=== PATIENT | male | born 1995 | race Two or more races ===

== ENCOUNTER 2017-05-14 23:17 | Emergency (ER) | payer SELFPAY ==
[2017-05-14] MEDS ORDERED: TETANUS AND DIPHTHERIA TOXOID 0.5 ML DISP.SYRIN IM ONE (23:25)
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
[2017-05-14 23:44] VITALS: BP 152/71; PULSE 72; TEMP 98; BMI 28.5
== END 2017-05-15 02:13 | disposition home or self-care (01) ==
LOC: JER 23:17
PROC: 3E0234Z Introduction of Serum, Toxoid and Vaccine into Muscle, Percutaneous Approach (ICD-10-PCS; principal; 2017-05-14)
DX: S50.311A Abrasion of right elbow, initial encounter (principal); Y04.2XXA Assault by strike against or bumped into by another person, initial encounter; Y93.89 Activity, other specified; Y92.89 Other specified places as the place of occurrence of the external cause; Y99.8 Other external cause status; Y07.9 Unspecified perpetrator of maltreatment and neglect
CPT/HCPCS: 73070-TC-RT; 99281-25

== ENCOUNTER 2019-03-10 05:09 | Emergency (ER) | payer OTHER ==
[2019-03-10 05:45] VITALS: BP 135/70; PULSE 95; TEMP 97.6; BMI 64.5
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
== END 2019-03-10 07:04 | disposition home or self-care (01) ==
LOC: JER 05:09
DX: Z02.83 Encounter for blood-alcohol and blood-drug test (principal); V40.5XXA Car driver injured in collision with pedestrian or animal in traffic accident, initial encounter; Y92.414 Local residential or business street as the place of occurrence of the external cause; Y93.89 Activity, other specified; Y99.8 Other external cause status
CPT/HCPCS: 99281-25

== ENCOUNTER 2023-04-23 09:35 | Emergency (ER) | payer OTHER ==
[2023-04-23 09:47] VITALS: BP 142/78; PULSE 58; RESP 19; TEMP 97.7; BMI 23.7
[2023-04-23] MEDS ORDERED: IBUPROFEN 600 MG TABLET (FP) PO ONE ×2 (10:23→10:27)
== END 2023-04-23 11:45 | disposition home or self-care (01) ==
LOC: JERFT 09:35
DX: M79.671 Pain in right foot (principal)
CPT/HCPCS: 73630-TC-RT-FY; 99283-25